=== PATIENT | female | born 1995 | race Two or more races ===

== ENCOUNTER 2021-06-27 14:17 | Observation (INO) | payer OTHER | END 2021-06-27 16:48 | disposition home or self-care (01) | LOC: LDRP 14:17 | PROVIDERS: ADMIT Obstetrics & Gynecology; ATTEND Obstetrics & Gynecology | DX: O62.9 Abnormality of forces of labor, unspecified (principal); Z3A.38 38 weeks gestation of pregnancy | CPT/HCPCS: 59025; 76805; 81002; 94760; G0378; G0379 ==

== ENCOUNTER 2021-07-02 10:43 | Observation (INO) | payer MEDICAID ==
[2021-07-02 12:03] LABS: Basophils # (auto) 0 10 ^3/uL (0-0.2); Basophils % (auto) 0.4 % (0.0-2.0); Eosinophils # (auto) 0.1 10 ^3/uL (0-0.8); Eosinophils % (auto) 1.5 % (0.0-7.0); Hematocrit 36.1 % (36.0-46.0); Hemoglobin 12.2 g/dL (12.2-16.2); Lymphocytes % (auto) 15.8 % (10.0-50.0); Mean Corpuscular Hemoglobin 30.2 pg (28.0-32.0); Mean Corpuscular Hgb Conc. 33.6 g/dL (32.0-36.0); Mean Corpuscular Volume 89.9 fL (80.0-100.0); Monocytes # (auto) 0.6 10 ^3/uL (0-1.3); Monocytes % (auto) 9.8 % (0.0-12.0); Neutrophils # (auto) 4.4 10 ^3/uL (1.6-8.6); Neutrophils % (auto) 72.5 % (37.0-80.0); Nucleated Red Blood Cells % 0.1 %; Red Blood Cells 4.02 10^6/uL (4.0-5.20); Red Cell Distribution Width 15.8 % (11.8-14.3)
[2021-07-02 12:13] LABS: Urine Bacteria FEW /hpf (None Seen); Urine Blood Negative /uL (Negative); Urine Mucus FEW (None Seen); Urine Specific Gravity 1.006 (1.001-1.035); Urine WBC 7 /hpf (0 - 5)
[2021-07-02 12:21] LABS: Albumin 2.7 g/dL (3.4-5.0); Calcium 9.1 mg/dL (8.5-10.1); INR 0.89 (0.9-1.15); Partial Thromboplastin Time 26.4 sec (23.6-33.0); Uric Acid 3.6 mg/dL (2.6-6.0)
[2021-07-02 12:24] LABS: Bilirubin, Total 0.3 mg/dL (0.2-1.0); Total Protein 7.3 g/dL (6.4-8.2)
[2021-07-02 12:33] LABS: Amphetamine Screen, Urine NEGATIVE (NEGATIVE); Barbiturate Scree,Urine NEGATIVE (NEGATIVE); Benzodiazephine Screen, Urine NEGATIVE (NEGATIVE); Cannabinoid Screen, Urine NEGATIVE (NEGATIVE); Cocaine Screen, Urine NEGATIVE (NEGATIVE); Opiate Scree,Urine NEGATIVE (NEGATIVE); Phencyclidine Screen, Urine NEGATIVE (NEGATIVE)
[2021-07-04 05:06] LABS: RPR Non Reactive (Non Reactive)
[2021-07-04 07:06] LABS: Rubella Antibodies, IgG 1.11 index (Immune >0.99)
== END 2021-07-02 12:13 | disposition home or self-care (01) ==
LOC: LDRP 10:43
PROVIDERS: ADMIT Obstetrics & Gynecology; ATTEND Obstetrics & Gynecology
DX: O62.9 Abnormality of forces of labor, unspecified (principal); Z3A.39 39 weeks gestation of pregnancy; Z79.899 Other long term (current) drug therapy; Z98.890 Other specified postprocedural states
CPT/HCPCS: 36415; 80053; 80307; 81001; 84550; 85025; 85610; 85730; 86592; 86703; 86762; 86850; 86900; 86901; 87340; G0378; 59025; 81002; 94760

== ENCOUNTER 2021-07-08 04:24 | Inpatient (IN) | payer MEDICAID ==
[~2021-07-08] VITALS: Ht 160 cm; Wt 72.6 kg
[2021-07-08] MEDS ORDERED: WITCH HAZEL-GLYCERIN PAD TOP PRN (07:30)
[2021-07-08] MEDS ORDERED: BUTORPHANOL TARTRATE 2 MG/1 ML VIAL IV PRN (07:30)
[2021-07-08] MEDS ORDERED: DERMOPLAST 60ML BOTTLE TOP PRN (07:30)
[2021-07-08] MEDS ORDERED: LIDOCAINE 2%HCL (LOCAL ANESTH.) INJ 20ML MDV IJ PRN (07:30)
[2021-07-08] MEDS ORDERED: PHISODERM TOP SOLN 240ML BTL TOP PRN (07:30)
[2021-07-08] MEDS ORDERED: miSOPROStol 50 MCG per PRE-CUT 1/2 TAB PO PRN (07:30)
[2021-07-08] MEDS ORDERED: PENICILLIN G POT 5MIL/D5 50ML 50 ML IV ONE (07:45)
[2021-07-08 08:25] LABS: Urine Bacteria FEW /hpf (None Seen); Urine Blood 1+ /uL (Negative); Urine Specific Gravity 1.006 (1.001-1.035); Urine WBC 3 /hpf (0 - 5)
[2021-07-08 08:34] LABS: Basophils # (auto) 0 10 ^3/uL (0-0.2); Basophils % (auto) 0.4 % (0.0-2.0); Eosinophils # (auto) 0.1 10 ^3/uL (0-0.8); Hematocrit 36.1 % (36.0-46.0); Hemoglobin 12.4 g/dL (12.2-16.2); Lymphocytes % (auto) 23.3 % (10.0-50.0); Mean Corpuscular Hemoglobin 30.3 pg (28.0-32.0); Mean Corpuscular Hgb Conc. 34.4 g/dL (32.0-36.0); Mean Corpuscular Volume 88.2 fL (80.0-100.0); Monocytes # (auto) 0.5 10 ^3/uL (0-1.3); Monocytes % (auto) 5.4 % (0.0-12.0); Neutrophils # (auto) 5.9 10 ^3/uL (1.6-8.6); Neutrophils % (auto) 69.9 % (37.0-80.0); Red Blood Cells 4.09 10^6/uL (4.0-5.20); Red Cell Distribution Width 15.5 % (11.8-14.3); White Blood Cell 8.4 10^3/uL (4.4-10.8)
[2021-07-08 08:37] LABS: Calcium 9.6 mg/dL (8.5-10.1); Potassium 3.9 mmol/L (3.5-5.1)
[2021-07-08] MEDS: LACTATED RINGER'S 1,000 ML IV SCH ×2 (08:37→19:09)
[2021-07-08 08:43] LABS: Albumin 2.8 g/dL (3.4-5.0); BUN/Creatinine Ratio 26.8; Bilirubin, Total 0.2 mg/dL (0.2-1.0); Total Protein 7.3 g/dL (6.4-8.2)
[2021-07-08 08:45] LABS: Amphetamine Screen, Urine NEGATIVE (NEGATIVE); Barbiturate Scree,Urine NEGATIVE (NEGATIVE); Benzodiazephine Screen, Urine NEGATIVE (NEGATIVE); Cannabinoid Screen, Urine NEGATIVE (NEGATIVE); INR 0.88 (0.9-1.15); Opiate Scree,Urine NEGATIVE (NEGATIVE); Partial Thromboplastin Time 26.1 sec (23.6-33.0)
[2021-07-08 08:47] LABS: Cocaine Screen, Urine NEGATIVE (NEGATIVE); Phencyclidine Screen, Urine NEGATIVE (NEGATIVE)
[2021-07-08] MEDS: PENICILLIN G POTASSIUM 2,500,000 UNITS in D5W 5% 50 ML IV SCH ×3 (12:46→20:41)
[2021-07-08] MEDS: PROMETHAZINE HCL 25 MG/ML 1ML IV PRN ×2 (17:58→21:56)
[2021-07-08] MEDS: BUTORPHANOL TARTRATE 2 MG/1 ML VIAL IV PRN ×2 (17:58→21:56)
[2021-07-08] MEDS ORDERED: LACT. RINGERS/OXYTOCIN 20UNITS 500 ML IV ONE ×2 (19:00→19:30)
[2021-07-08] MEDS ORDERED: LACT. RINGERS/OXYTOCIN 20UNITS 1,000 ML IV SCH (19:00)
[2021-07-08] MEDS ORDERED: TERBUTALINE SULFATE 1 MG/ML 1ML VIAL SC PRN (19:00)
[2021-07-08] MEDS ORDERED: ROPIVACAINE HCL 200 ML EPI SCH (23:00)
[2021-07-08] MEDS ORDERED: fentaNYL CITRATE 100 MCG/2 ML VL IV ONE (23:00)
[2021-07-08] MEDS ORDERED: LIDOCAINE HCL 2 %PF INJ 10ML AMP IJ ONE (23:00)
[2021-07-08] MEDS ORDERED: NALOXONE HCL 0.4 MG/ML VIAL IV ONE (23:00)
[2021-07-08] MEDS ORDERED: ePHEDrine SULFATE 50 MG/ML AMP IV ONE (23:00)
[2021-07-08] MEDS ORDERED: LACTATED RINGER'S 1,000 ML IV ONE (23:00)
[2021-07-09] VITALS (27 sets, daily range): BP systolic 106–148; BP diastolic 50–88
[2021-07-09] MEDS ORDERED: oxyTOCIN 10 UNIT/ML 10ML VIAL ONE (06:12)
[2021-07-09] MEDS ORDERED: LIDOCAINE 2% (LOCAL ANESTH.) PF 5ml SDV ONE (06:12)
[2021-07-09] MEDS ORDERED: DexAMETHasone SOD PHOS 10MG/1ML VIAL INJ ONE (06:12)
[2021-07-09] MEDS ORDERED: ONDANSETRON HCL 4 MG/2 ML VIAL ONE (06:12)
[2021-07-09] MEDS ORDERED: MORPHINE SULF PF 2 MG/2 ML SYRG ONE (06:18)
[2021-07-09] MEDS ORDERED: ePHEDrine SULFATE 50 MG/ML AMP IV ONE (06:30)
[2021-07-09] MEDS ORDERED: fentaNYL CITRATE 100 MCG/2 ML VL IV ONE (06:30)
[2021-07-09] MEDS ORDERED: LIDOCAINE 2%HCL (LOCAL ANESTH.) INJ 20ML MDV IJ ONE (06:30)
[2021-07-09] MEDS ORDERED: NALOXONE HCL 0.4 MG/ML VIAL IV ONE (06:30)
[2021-07-09] MEDS ORDERED: ROPIVACAINE HCL 200 ML EPI SCH (06:30)
[2021-07-09] MEDS ORDERED: ONDANSETRON HCL 4 MG/2 ML VIAL IV PRN ×2 (06:45→08:15)
[2021-07-09] MEDS ORDERED: HYDROmorphone HCL 2 MG/ML VL IV PRN ×3 (06:45→08:15)
[2021-07-09] MEDS ORDERED: LABETALOL HCL 5 MG/ML 4ML SYRINGE IV PRN (06:45)
[2021-07-09] MEDS ORDERED: NALOXONE HCL 0.4 MG/ML VIAL IV PRN ×2 (06:45)
[2021-07-09] MEDS ORDERED: hydrALAZINE HCL 20 MG/ML VL IV PRN (06:45)
[2021-07-09] MEDS ORDERED: diphenhdrAMINE HCL 50 MG/1 ML VL IV PRN (06:45)
[2021-07-09] MEDS ORDERED: ceFAZolin 1GM/50ML 50 ML IV ONE (06:53)
[2021-07-09] MEDS ORDERED: fentaNYL CITRATE 100 MCG/2 ML VL ONE (06:58)
[2021-07-09] MEDS ORDERED: LIDOCAINE 1% (LOCAL ANESTH.) PF 5ml SDV ONE (07:06)
[2021-07-09] MEDS ORDERED: PROPOFOL 10 MG/ML 20 ML IV ONE (07:06)
[2021-07-09] MEDS ORDERED: BUPIVACAINE 0.25% INJ 50ML VIAL ONE (07:16)
[2021-07-09] MEDS ORDERED: GUM (CHEWING) 1 GUM CHEW CHEW ONE (08:15)
[2021-07-09] MEDS ORDERED: MORPHINE SULFATE 4 MG/ML SYR/VIAL IV PRN (08:15)
[2021-07-09] MEDS ORDERED: ePHEDrine SULFATE 50 MG/ML AMP IV PRN (08:15)
[2021-07-09] MEDS ORDERED: KETOROLAC TROMETH 30 MG/ML 1ML VIAL IV PRN (08:15)
[2021-07-09] MEDS ORDERED: MORPHINE SULFATE INJECTION 2 MG/ML SYRG IV PRN (08:30)
[2021-07-09 09:06] LABS: RPR Non Reactive (Non Reactive)
[2021-07-09] MEDS: ACETAMINOPHEN IV 1000 MG/100ML (10MG/ML) IV PRN ×2 (09:18→17:32)
[2021-07-09] MEDS: LACTATED RINGER'S 1,000 ML IV SCH (09:18)
[2021-07-09] MEDS: ceFAZolin 1GM/50ML 50 ML IV SCH ×2 (14:25→22:34)
[2021-07-10] VITALS (9 sets, daily range): BP systolic 107–122; BP diastolic 67–76
[2021-07-10] MEDS: ACETAMINOPHEN IV 1000 MG/100ML (10MG/ML) IV PRN (01:57)
[2021-07-10] MEDS: ceFAZolin 1GM/50ML 50 ML IV SCH (06:43)
[2021-07-10] MEDS ORDERED: HYDROcodone-ACET 5/325MG TAB PO PRN (08:00)
[2021-07-10] MEDS ORDERED: BISACODYL 10 MG RECT SUPP PR PRN (08:00)
[2021-07-10 09:18] LABS: Basophils # (auto) 0 10 ^3/uL (0-0.2); Basophils % (auto) 0.3 % (0.0-2.0); Eosinophils # (auto) 0 10 ^3/uL (0-0.8); Eosinophils % (auto) 0.3 % (0.0-7.0); Hematocrit 30.4 % (36.0-46.0); Lymphocytes # (auto) 1.7 10 ^3/uL (0.4-5.4); Lymphocytes % (auto) 13.5 % (10.0-50.0); Mean Corpuscular Hemoglobin 29.9 pg (28.0-32.0); Mean Corpuscular Hgb Conc. 33.1 g/dL (32.0-36.0); Mean Corpuscular Volume 90.5 fL (80.0-100.0); Monocytes # (auto) 0.9 10 ^3/uL (0-1.3); Monocytes % (auto) 6.9 % (0.0-12.0); Neutrophils # (auto) 9.8 10 ^3/uL (1.6-8.6); Red Blood Cells 3.36 10^6/uL (4.0-5.20); Red Cell Distribution Width 16.4 % (11.8-14.3); White Blood Cell 12.4 10^3/uL (4.4-10.8)
[2021-07-10] MEDS: HYDROcodone-ACET 5/325MG TAB PO PRN ×2 (09:18→23:12)
[2021-07-10] MEDS: DOCUSATE CALCIUM 240 MG CAP PO SCH (12:05)
[2021-07-10] MEDS: SIMETHICONE 80 MG CHEWABLE TABLET PO SCH ×3 (12:05→23:11)
[2021-07-10] MEDS: DOCUSATE SOD 100 MG CAP PO SCH ×2 (12:05→23:11)
[2021-07-10] MEDS: LACTATED RINGER'S 1,000 ML IV SCH (12:06)
[2021-07-10] MEDS: IBUPROFEN 800 MG TAB PO PRN (13:01)
[2021-07-10] MEDS: SODIUM CHLOR 0.9% PF (SALINE LOCK) 10ML VIAL/SYR IV SCH ×2 (16:26→22:00)
[2021-07-11 03:00] VITALS: BP 113/68
[2021-07-11] MEDS: SODIUM CHLOR 0.9% PF (SALINE LOCK) 10ML VIAL/SYR IV SCH ×3 (06:00→22:00)
[2021-07-11 07:15] VITALS: BP 140/79
[2021-07-11 11:30] VITALS: BP 123/68
[2021-07-11] MEDS: SIMETHICONE 80 MG CHEWABLE TABLET PO SCH ×3 (12:00→22:08)
[2021-07-11] MEDS: DOCUSATE CALCIUM 240 MG CAP PO SCH (12:51)
[2021-07-11] MEDS: DOCUSATE SOD 100 MG CAP PO SCH ×2 (12:51→22:07)
[2021-07-11 15:00] VITALS: BP 127/73
[2021-07-11 19:30] VITALS: BP 126/80
[2021-07-11 23:03] VITALS: BP 140/82
[2021-07-12 03:00] VITALS: BP 130/78
[2021-07-12] MEDS: SODIUM CHLOR 0.9% PF (SALINE LOCK) 10ML VIAL/SYR IV SCH ×2 (06:00→14:00)
[2021-07-12] MEDS: SIMETHICONE 80 MG CHEWABLE TABLET PO SCH ×2 (06:41→12:00)
[2021-07-12 07:30] VITALS: BP 126/84
[2021-07-12] MEDS ORDERED: TETANUS-DIPTH-ACEL PERTUSSIS 0.5ML SYR Tdap IM ONE (08:00)
[2021-07-12] MEDS: DOCUSATE SOD 100 MG CAP PO SCH (09:43)
[2021-07-12] MEDS: DOCUSATE CALCIUM 240 MG CAP PO SCH (09:44)
[2021-07-12 11:30] VITALS: BP 139/81
[2021-07-12] MEDS: IBUPROFEN 800 MG TAB PO PRN (12:40)
== END 2021-07-12 14:02 | disposition home or self-care (01) | DRG 540 ==
LOC: LDRP 04:24 → OBSVTOIN 07:20 → LDRP 15:37
PROVIDERS: ADMIT Obstetrics & Gynecology; ATTEND Obstetrics & Gynecology
PROC: 3E0DXGC Introduction of Other Therapeutic Substance into Mouth and Pharynx, External Approach (ICD-10-PCS; 2021-07-08)
PROC: 3E0P7VZ Introduction of Hormone into Female Reproductive, Via Natural or Artificial Opening (ICD-10-PCS; 2021-07-08)
PROC: 10D00Z1 Extraction of Products of Conception, Low, Open Approach (ICD-10-PCS; principal; 2021-07-09 06:58)
DX: O69.81X0 Labor and delivery complicated by cord around neck, without compression, not applicable or unspecified (principal); O33.9 Maternal care for disproportion, unspecified; Z20.822 Contact with and (suspected) exposure to COVID-19; O76 Abnormality in fetal heart rate and rhythm complicating labor and delivery; Z37.0 Single live birth; Z3A.39 39 weeks gestation of pregnancy
CPT/HCPCS: 36415; 59025; 62282; 76815; 80053; 80307; 81001; 81002; 84112; 85025; 85610; 85730; 86592; 86850; 86900; 86901; 87426; 90715; 94760; 94762; 96360; 96361; 96365; 96366; 96372; 96374; 96375; G0378; J0131; J0690; J1100; J2001; J2405; J2540; J2590; J2704; J3490; J7060